=== PATIENT | female | born 1980 | race Hispanic/Latino ===

== ENCOUNTER 2017-04-05 06:34 | Day surgery (SDC) | payer OTHER ==
[2017-04-05] MEDS ORDERED: HEPARIN SUB-Q NR (08:00)
[2017-04-05] MEDS ORDERED: LEVAQUIN 500MG/100ML 500 MG/100 ML BAG IV NR (08:00)
[2017-04-05] MEDS ORDERED: SUBLIMAZE IV ONE (08:16)
--- NOTE | 2017-04-05 08:16 | Anesthesia Consultation ---
Anesthesia Consult and Med Hx Date of service: 04/05/17 - Airway Anesthetic Teeth Evaluation: Good ROM Head & Neck: Adequate Mental/Hyoid Distance: Adequate Mallampati Class: Class II Intubation Access Assessment: Good - Pulmonary Exam CTA: Yes - Cardiac Exam Cardiac Exam: No Murmur - Pre-Operative Health Status ASA Pre-Surgery Classification: ASA1, ASA2 - Pulmonary Hx Asthma: Yes (As a child) - Cardiovascular System Hx Heart Murmur: Yes - Central Nervous System Hx Back Pain: Yes - Endocrine Hx Renal Disease: Yes (Grade 4 reflux) - Hematic Hx Anemia: Yes (Post operatively) - Other Systems Hx Alcohol Use: No Hx Substance Use: No
--- NOTE | 2017-04-05 08:16 | Anesthesia Day of Surgery ---
Anesthesia Day of Surgery - Day of Surgery Patient Examined: Yes Patient H&P Reviewed: Yes Patient is NPO: Yes
[2017-04-05] MEDS ORDERED: MARCAINE-EPI 0.5%-1:200,000 INFILTRATI ONE (08:18)
[2017-04-05] MEDS ORDERED: SUBLIMAZE ONE (08:19)
[2017-04-05] MEDS ORDERED: DIPRIVAN 10 MG/ML IV ONE ×3 (08:19→09:03)
[2017-04-05] MEDS ORDERED: ZEMURON IV ONE (08:40)
[2017-04-05] MEDS ORDERED: XYLOCAINE MPF 2% ONE (08:40)
[2017-04-05] MEDS ORDERED: XYLOCAINE 1% 20 mL ONE (08:54)
[2017-04-05] MEDS ORDERED: MARCAINE-EPI/PF 0.5%-1:200,000 INFILTRATI ONE (08:54)
[2017-04-05] MEDS ORDERED: CLONIDINE 1,000 MCG/10 ML VIAL EP ONE (08:55)
[2017-04-05] MEDS ORDERED: PEPCID PO NR (09:00)
[2017-04-05] MEDS ORDERED: DECADRON IV ONE (09:00)
[2017-04-05] MEDS ORDERED: LACTATED RINGERS 1,000 ML IV SCH (09:00)
[2017-04-05] MEDS ORDERED: VERSED IV NR ×2 (09:00→11:30)
[2017-04-05] MEDS ORDERED: NEURONTIN PO NR (09:00)
[2017-04-05 09:09] LABS: Basophils % (Auto) 0.6 % (0.0-1.8); Eosinophils % (Auto) 0.9 % (0.0-4.3); Hematocrit 36.9 % (30.3-42.9); Hemoglobin 12.6 gm/dl (10.1-14.3); Mean Corpuscular HGB Conc 34 % (30-34); Mean Corpuscular Hemoglobin 31 pg (28-32); Mean Corpuscular Volume 90 fl (79-97); Platelet Count 251 K/mm3 (140-440); Red Cell Distribution Width 13.3 % (13.2-15.2); White Blood Count 6.9 K/mm3 (4.5-11.0)
[2017-04-05] MEDS ORDERED: MARCAINE-EPI 0.25%-1:200,000 INFILTRATI ONE ×3 (09:15→09:44)
[2017-04-05 09:23] LABS: Anion Gap 19 mmol/L; BUN/Creatinine Ratio 31.66; Blood Urea Nitrogen 19 mg/dL (7-17); Calcium 8.9 mg/dL (8.4-10.2); Carbon Dioxide 23 mmol/L (22-30); Chloride 102.9 mmol/L (98-107); Glucose 99 mg/dL (65-100); Potassium 3.9 mmol/L (3.6-5.0); Sodium 141 mmol/L (137-145)
[2017-04-05] MEDS ORDERED: DECADRON ONE (09:45)
[2017-04-05] MEDS ORDERED: ePHEDrine SULFATE ONE (09:55)
[2017-04-05] MEDS ORDERED: ROBINUL ONE (09:59)
[2017-04-05] MEDS ORDERED: NEOSTIGMINE ONE (09:59)
[2017-04-05] MEDS ORDERED: ZOFRAN ONE (10:02)
[2017-04-05] MEDS ORDERED: LACTATED RINGERS 1,000 ML ONE (10:39)
--- NOTE | 2017-04-05 11:24 | Procedure Note ---
Date of procedure: 04/05/17 Pre-op diagnosis: 1) RLQ pain 2) Ventral hernia Post-op diagnosis: same Procedure: 1) Diagnostic laparoscopy 2) Repair of ventral hernia with mesh Description of procedure: Pt was placed supine on the OR table. GETA was administered. Fair catheter was administered. Abdomen was prepped and draped. A periumbilical incision was made and the hernia sac identified. The sac was dissected down to the fascia and excised. A blunt 10 mm port was inserted into the peritoneal cavity and pneumoperitoneum established. Two 5 mm midline hypogastric ports were inserted into the peritoneal cavity and pneumoperitoneum established. Pt was placed in a reverse Trendelenburg position with her right side rotated upward. The appendiceal stump was identified. The small bowel was run retrograde from the IC valve proximally. A couple of flimsy adhesions were lysed. The bowel was run proximally all the way to the proximal jejunum without additional adhesions noted. Dr. Nehemiah Siegel was present during the diagnostic laparoscopy and no evidence of endometriosis was found. There were no pelvic masses or cysts. The laparoscopy was terminated and the pneumoperitoneum released after removing the two 5 mm hypogastric ports. The ventral hernia was repair with a small piece of Ventralex mesh which was secured to the fascia with sutures of 0-Ethibond. Skin incisions were closed with running subcuticular sutures of 4-0 Monocryl. Sterile absorbent dressings were applied. Pt tolerated the procedure well. She was extubated in the OR and was taken to PACU in stable condition. Anesthesia: GETA Surgeon: YESSICA GOOD Estimated blood loss: minimal Pathology: none Condition: stable Disposition: PACU
[2017-04-05] MEDS ORDERED: ZOFRAN IV PRN (11:30)
[2017-04-05] MEDS: DILAUDID IV PRN ×2 (11:48→12:00)
[2017-04-05] MEDS ORDERED: BENADRYL IV ONE (12:25)
--- NOTE | 2017-04-05 12:46 | Post Anesthesia Evaluation ---
- Post Anesthesia Evaluation Patient Participated: Yes Airway Patent: Yes Stable Respiratory Function: Yes Nausea/Vomiting: No Temp > 96.8F: Yes Pain Manageable: Yes Adequeate Hydration: Yes Anesthesia Complications: No
[2017-04-05] MEDS ORDERED: VERSED IV ONE (13:15)
[2017-04-05] MEDS ORDERED: ZOFRAN IV ONE (14:00)
[2017-04-05] MEDS ORDERED: PERCOCET 5/325 PO ONE (14:00)
[2017-04-05 15:18] VITALS: BP 99/59
--- NOTE | 2017-04-05 22:18 | Post Operative Note ---
Date of procedure: 04/05/17 (Intra-opertaive consultation) Pre-op diagnosis: 1. Pelvic pain 2. Suspected endometriosis 3. Intra- operative consultation Post-op diagnosis: other (No evidence of endometriosis) Findings: Absent uterus, absent tubes and ovaries. No evidence of endometriosis. Please see Dr Martínez's operative report for details. Procedure: Diagnostic Laparoscopy by Dr Martínez Anesthesia: GETA Surgeon: YESSICA MARTÍNEZ Estimated blood loss: minimal Pathology: none Condition: stable Disposition: PACU
== END 2017-04-05 14:50 | disposition home or self-care (01) ==
LOC: OR 06:34 → EDSTATUS 09:00 → OR 14:50
PROVIDERS: ATTEND Surgery
DX: K43.9 Ventral hernia without obstruction or gangrene (principal); J45.909 Unspecified asthma, uncomplicated; K21.9 Gastro-esophageal reflux disease without esophagitis; D64.9 Anemia, unspecified; Z88.0 Allergy status to penicillin; Z88.2 Allergy status to sulfonamides; Z88.8 Allergy status to other drugs, medicaments and biological substances; Z91.040 Latex allergy status
CPT/HCPCS: 36415; 49320; 49560; 49568; 64450; 80048; 85025; C1781; J0735; J1100; J1170; J1200; J1644; J1956; J2250; J2405; J2704; J2710; J3010; J7120